=== PATIENT | female | born 1980 | race American Indian/Alaskan Native ===

== ENCOUNTER 2017-01-03 22:37 | Emergency (ER) | payer SELFPAY ==
[2017-01-03 22:51] VITALS: BP 147/98
[2017-01-03 23:34] LABS: Basophils % (Auto) 0.4 % (0.0-1.8); Eosinophils % (Auto) 3.3 % (0.0-4.3); Hematocrit 33.8 % (30.3-42.9); Hemoglobin 10.8 gm/dl (10.1-14.3); Mean Corpuscular HGB Conc 32 % (30-34); Mean Corpuscular Hemoglobin 26 pg (28-32); Mean Corpuscular Volume 80 fl (79-97); Platelet Count 383 K/mm3 (140-440); Red Blood Count 4.25 M/mm3 (3.65-5.03); Red Cell Distribution Width 15.2 % (13.2-15.2); White Blood Count 9.9 K/mm3 (4.5-11.0)
[2017-01-03 23:42] LABS: Anion Gap 21 mmol/L; BUN/Creatinine Ratio 15.71; Blood Urea Nitrogen 11 mg/dL (7-17); Calcium 9.2 mg/dL (8.4-10.2); Carbon Dioxide 25 mmol/L (22-30); Chloride 97.5 mmol/L (98-107); Glucose 96 mg/dL (65-100); Potassium 3.1 mmol/L (3.6-5.0); Sodium 140 mmol/L (137-145)
--- NOTE | 2017-01-05 01:25 | ED Elopement Review ---
ED Pt Elopement review - Results review Lab results: Laboratory Tests 01/03/17 01/03/17 23:12 23:12 WBC 9.9 RBC 4.25 Hgb 10.8 Hct 33.8 MCV 80 MCH 26 L MCHC 32 RDW 15.2 Plt Count 383 Lymph % (Auto) 41.2 H Heard % (Auto) 9.4 H Eos % (Auto) 3.3 Baso % (Auto) 0.4 Lymph # 4.1 Heard # 0.9 H Eos # 0.3 Baso # 0.0 Seg Neutrophils % 45.7 Seg Neutrophils # 4.5 Sodium 140 Potassium 3.1 L Chloride 97.5 L Carbon Dioxide 25 Anion Gap 21 BUN 11 Creatinine 0.7 Estimated GFR > 60 BUN/Creatinine Ratio 15.71 Glucose 96 Calcium 9.2 Troponin T < 0.010 - Call Back decision Pt Call Back Decision: No action required
== END 2017-01-04 05:40 | disposition left against medical advice (07) ==
LOC: ED 22:37
DX: R07.89 Other chest pain (principal); Z53.21 Procedure and treatment not carried out due to patient leaving prior to being seen by health care provider
CPT/HCPCS: 36415; 80048; 84484; 85025; 93005; 93010